=== PATIENT | female | born 1955 | race Caucasian/White ===

== ENCOUNTER 2016-07-10 13:50 | Emergency (ER) | payer OTHER ==
[2016-07-10] MEDS ORDERED: TORADOL IM ONE (17:20)
[2016-07-10] MEDS ORDERED: PHENERGAN PO ONE (17:22)
--- NOTE | 2016-07-10 19:59 | PROVIDER DOCUMENTATION ---
HPI-Headache - General Source: patient, family - History of Present Illness-Headache Headache Location: reports: frontal Quality of Pain: reports: dull, pressure Severity: reports: mild Onset/Duration: reports: 2 days ago Timing: reports: still present, constant Headache Context: reports: nothing. denies: head injury, meningitis exposure, while turning/twisting head Headache History: reports: occasional headaches. denies: frequent headaches, chronic headaches, head trauma < 24 hrs ago, head trauma > 24 hrs ago, history of migraines Any recent trauma/injury?: reports: none Headache severity at the maximum: moderate Preceding Symptoms: denies: visual disturbances, scotoma, aura(s), typical of previous aura(s) Headache Exacerbated by:: reports: light. denies: noise, movement, position Modifying Factors: improves with: analgesics (pt reports taking multiple OTC medsw ithout relief.) Associated Symptoms: denies: short of breath, headache, decreased ability to walk or stand, fainting, dizziness, confusion, chest pain, neck/back pain, fatigue, fever/chills, insomnia, loss of consciousness, muscle spasms, nausea, numbness in legs/feet, paresthesia, diaphoretic, ringing in ears, seizures, sleepy, slurred speech, trouble walking, vomiting, vision changes, weakness Similar Symptoms Previously?: No Recently seen or treated by another doctor?: Yes <Anant Freeman - Last Filed: 07/10/16 20:04> <Padilla Zuniga - Last Filed: 07/10/16 20:17> - General Chief Complaint: Headache Stated Complaint: HEADACHE X 2DAYS Time Seen by Provider: 07/10/16 17:15 Allergies/Adverse Reactions: Patient Allergies Allergy/AdvReac Type Severity Reaction Status Date / Time No Known Allergies Allergy Verified 07/10/16 14:06 Home Medications: Home Medication List Medication Instructions Recorded Confirmed Last Taken Type Ketorolac [Toradol] 10 mg PO Q6H PRN PRN #10 tablet 07/10/16 Unknown Rx Promethazine [Phenergan] 25 mg PO Q6H PRN PRN #20 tablet 07/10/16 Unknown Rx - History of Present Illness-Headache Nature of Presenting Problem: 60 year old WF presents with c/o headache, nausea, vomiting for 2 days. pt reports she was evaluated at an urgent care, told she had a viral infection, sent home with zofran. pt reports the zofran worsened the headche. denies fever. pt is in no distress, laughing, smiling and joking in triage. (Anant Freeman) Review of Systems - Adult - REVIEW OF SYSTEMS - ADULT Constitutional: reports: no symptoms reported. denies: chills, fever, fatique Eyes: reports: no symptoms reported. denies: discharge, dry eyes, decreased vision, blurred vision, double vision, eye pain, redness Ears, Nose, Mouth & Throat: reports: no symptoms reported. denies: ear discharge, ear pain, hearing loss, tinnitus, epistaxis, sinus problem, nose pain , loose teeth, mouth/dental pain, mouth swelling, hoarseness, throat pain, throat swelling Cardiovascular: reports: no symptoms reported. denies: chest pain, palpitations , syncope Respiratory: reports: no symptoms reported. denies: chronic cough, cough, shortness of breath, wheezing Gastrointestinal: reports: see HPI, nausea, vomiting. denies: abdominal pain, hematemesis, constipation, diarrhea, difficulty swallowing, frequent heartburn, poor appetite, rectal bleeding Genitourinary: reports: no symptoms reported. denies: dysuria, hematuria, urgency Musculoskeletal: reports: no symptoms reported. denies: bone pain, joint pain, joint swelling, neck pain Integumentary: reports: no symptoms reported. denies: hives, itching, rash, skin sores/ulcer Neurological: reports: see HPI, headache/migraines. denies: ataxia, dizziness/ vertigo, loss of balance, numbness, paresthesia, seizure, slurred speech, syncope, tremors Psychiatric: reports: no symptoms reported Endocrine: reports: no symptoms reported Hematologic/Lymphatic: reports: no symptoms reported. denies: prolonged bleeding Allergic/Immunologic: reports: no symptoms reported All Other Systems: Reviewed and Negative <Anant Freeman - Last Filed: 07/10/16 20:04> Past History - Adult - PAST MEDICAL HISTORY-ADULT Review of Records: reports: Old Records Reviewed, Nursing Assessment Review, Medications Reviewed, Social history reviewed & non-contributory. Major Childhood Illnesses: reports: denies history Cardiovascular: reports: denies history Respiratory: reports: denies history Gastrointestinal: reports: denies history Obstetrical/Gynecological: reports: denies history Genitourinary: reports: denies history Musculoskeletal: reports: denies history Neurological: reports: denies history Endocrine/Immune: reports: denies history Other Conditions: reports: denies history - FAMILY HISTORY Family History: reviewed, not pertinent - SOCIAL HISTORY Smoking: denies, non-smoker Substance Use: none/never Alcohol Use Frequency: never <FreemanFaridehkikiselin Canales - Last Filed: 07/10/16 20:04> Physical Exam- Neurological - Physical Exam-Neuro Initial Vital Signs Reviewed: Yes General Appearance: appears well, alert, no apparent distress (laughing, smiling during H&P). negative: mild distress, moderate distress, severe distress, lethargic, slow to respond, obtunded, combative Eye Exam: bilateral eye: normal inspection, PERRL, EOMI HENMT: normocephalic/atraumatic, moist mucous membranes, normal ENT inspection, TMs normal, pharynx normal Head Injury: no evidence of injury. negative: active bleeding, Arora's Sign, contusions, ecchymosis, flap, lacerations, raccoon eyes, swelling, tenderness Neck: non-tender, full range of motion, supple, normal inspection. negative: C- spine tenderness, limited range of motion, lymphadenopathy, meningismus, trachial deviation, tender lateral, tender midline Respiratory: chest non-tender, lungs clear, normal breath sounds, no pleuratic chest pain, no respiratory distress, no accessory muscle use. negative: respiratory distress, decreased breath sounds, accessory muscle use, crackles, rales, rhonchi, stridor, wheezing Cardiovascular: normal peripheral pulses, regular rate, rhythm, no edema, no gallop Abdominal Exam: normal bowel sounds, non tender, soft. negative: distended, guarding, rigid, rebound, tenderness Lymphatic: negative: cervical node tenderness, enlargement, striations, streaking Peripheral Pulses: radial (R): 3+, radial (L): 3+, dorsalis-pedis (R): 3+, dorsalis-pedis (L): 3+ Extremity: normal range of motion, non-tender, normal gait, normal inspection, no pedal edema, no calf tenderness, normal capillary refill. negative: swelling , tenderness special needs caregiver Exam: normal hearing, normal speech, PERRL. negative: abnormal eye position , abnormal gag reflex, abnormal pupil position, abnormal speech, facial asymmetry, facial droop, facial paresthesias, facial weakness, gaze palsy, tongue deviation to R, tongue deviation to L Coordination/Gait: normal finger to nose, normal gait, negative Romberg's sign. negative: positive Romberg's sign, abnormal gait, ABN nose to finger (R), ABN nose to finger (L) Motor/Sensory: no motor deficit, no sensory deficit, no pronator drift. negative: pronator drift (R), pronator drift (L), sensory deficit, weak motor strength RUE, weak motor strength LUE, weak motor strength RLE, weak motor strength LLE Neurologic: special needs caregiver II-XII nml as tested, grossly normal, no motor/sensory deficits , negative romberg's sign. negative: abnormal cerebellar tests, abnormal special needs caregiver II -XII, abnormal gait, aphasia, EOM palsy, facial droop, focal weakness, motor weakness, sensory deficit, positive romberg's sign Integumentary: normal color, normal turgor, warm/dry. negative: pallor, petechiae, purpura, rash Psych/Mental Status: normal mood/affect, normal thought content, normal thought process, oriented x 3 - Glascow Coma Scale Best Eye Response: (4) open spontaneously Best Verbal Response: (5) oriented Best Motor Response: (6) obeys commands Total Glascow Score: 15 <Anant Freeman - Last Filed: 07/10/16 20:04> Progress - REASSESSMENT Reassessment #1 Time Reassessed: 20:05 Status: improving (pt reports pain has decreased from a 25 to a 1-2 on a 1-10 scale.) - CHANGE OF SHIFT REPORT (ED Provider) Report Given and Care Transferred to:: Dr. Lux Time of Transfer: 20:04 Items Pending: CT/MRI Results Tentative Impression of Patient: headache, negative CT, follow up with PMD <Anant Freeman - Last Filed: 07/10/16 20:04> - CT/MRI 1 CT Study: Head CT Results: NEGATIVE <Padilla Zuniga - Last Filed: 07/10/16 20:17> - PLAN OF CARE/RESULTS Progress/Plan/Lab Results: Laboratory Tests 07/10/16 07/10/16 17:30 17:30 Influenza A (Rapid) NEGATIVE Influenza B (Rapid) NEGATIVE Group A Strep Rapid NEGATIVE Orders Category Date Time Status HEAD W/O CONTRAST [CT] Stat Exams 07/10/16 17:16 Taken cxr [CHEST-2 VIEWS] [RAD] Stat Exams 07/10/16 17:[address] Stat Lab 07/10/16 17:[address] Stat Lab 07/10/16 17:30 Completed UA NIMS W/REFLEX CULT PL [URINALYSIS] Stat Lab 07/10/16 17:20 Uncollected Ketorolac [Toradol] Med 07/10/16 17:20 Discontinued 60 mg IM NOW ONE Promethazine [Phenergan] Med 07/10/16 17:22 Discontinued 25 mg PO NOW ONE Vital Signs - 24 hr 07/10/16 07/10/16 14:02 16:19 Temperature 98.3 F 99.1 F Pulse Rate 101 H 94 H Respiratory 16 17 Rate Blood Pressure 100/67 104/69 O2 Sat by Pulse 95 99 Oximetry (Anant Freeman) Laboratory Tests 07/10/16 07/10/16 17:30 17:30 Influenza A (Rapid) NEGATIVE Influenza B (Rapid) NEGATIVE Group A Strep Rapid NEGATIVE Orders Category Date Time Status HEAD W/O CONTRAST [CT] Stat Exams 07/10/16 17:16 Taken cxr [CHEST-2 VIEWS] [RAD] Stat Exams 07/10/16 17:[address] Stat Lab 07/10/16 17:[address] Stat Lab 07/10/16 17:30 Completed UA NIMS W/REFLEX CULT PL [URINALYSIS] Stat Lab 07/10/16 17:20 Uncollected Ketorolac [Toradol] Med 07/10/16 17:20 Discontinued 60 mg IM NOW ONE Promethazine [Phenergan] Med 07/10/16 17:22 Discontinued 25 mg PO NOW ONE Vital Signs - 24 hr 07/10/16 07/10/16 14:02 16:19 Temperature 98.3 F 99.1 F Pulse Rate 101 H 94 H Respiratory 16 17 Rate Blood Pressure 100/67 104/69 O2 Sat by Pulse 95 99 Oximetry (Padilla Zuniga) Departure - Departure Certified Medical Emergency: Emergent <Anant Freeman - Last Filed: 07/10/16 20:04> - Departure Time of Disposition Order: 20:17 Certified Medical Emergency: Emergent <Padilla Zuniga - Last Filed: 07/10/16 20:17> - Departure DIAGNOSIS: Headache Qualifiers: Headache type: unspecified Headache chronicity pattern: acute headache Intractability: not intractable Qualified Code(s): R51 - Headache Disposition: HOME 01 Condition: Stable Additional Instructions: Follow up with your primary care doctor. ED Follow Up Instructions: You have been treated by a care provider in the Emergency Department. These instructions are being provided to you so you can have an understanding of how to care for yourself upon discharge. Upon discharge from the Emergency Department, you are responsible for making arrangements for follow-up care by a physician of your choice. Take all prescribed medications as directed. Return to the Emergency Department immediately for any new or worsening symptoms. You may call the Physician Referral phone number at [phone] to obtain a list of Physicians who are taking new patients. Prescriptions: Promethazine [Phenergan] 25 mg PO Q6H PRN PRN #20 tablet PRN Reason: Nausea Ketorolac [Toradol] 10 mg PO Q6H PRN PRN #10 tablet PRN Reason: Headache Referrals: Ferny Davis MD [STAFF PHYSICIAN] - Forms: Return to School/Parent Work Instructions: Migraine Headache, [id number], Promethazine tablets, Ketorolac tablets Attestation - Physician/ WANDA Attestation Patient care was provided by Advanced Practice Provider:: Yes Advanced Practice Provider:: Anant Freeman Advanced Practice Provider documentation review:: The Mid-level provider documentation, treatment plan and medical decision making was reviewed by the physician who agrees with all treatment and medical decision making by the P. <Anant Freeman - Last Filed: 07/10/16 20:04> Physician Attestation
--- NOTE | 2016-07-10 20:22 | Diag Imaging Result Document ---
PROCEDURE NAME: HEAD W/O CONTRAST - 07/10/2016 STUDY: CT brain without contrast. PROTOCOL: Dose reduction protocol. No parenchymal hemorrhage. No epidural or subdural hematoma. No subarachnoid hemorrhage. No mass identified on this noncontrasted exam. No hydrocephalus. No sinus opacification. No air fluid levels. IMPRESSION: No hemorrhage. Negative brain CT without contrast. A preliminary report was given at 7:53 p.m.
[2016-07-10 20:25] VITALS: BP 096/69
--- NOTE | 2016-07-11 09:59 | Diag Imaging Result Document ---
PROCEDURE NAME: CHEST-2 VIEWS - 07/10/2016 CHEST 2 VIEWS: No comparison exam. FINDINGS: Heart size is normal. There is mild prominence of the aortic knob. There are possibly mild emphysematous changes. The lungs appear clear. There is no pleural effusion or pneumothorax seen. There is some thoracic spondylosis noted. IMPRESSION: Possible mild emphysematous changes. No other evidence of acute disease.
== END 2016-07-10 20:23 | disposition home or self-care (01) ==
LOC: P.ED 13:50
DX: R51 Headache (principal); R11.2 Nausea with vomiting, unspecified
CPT/HCPCS: 70450; 71020; 87081; 87430; 87804; 96372; J1885